=== PATIENT | male | born 1950 | race Two or more races ===

== ENCOUNTER 2023-11-12 14:27 | Emergency (ER) | payer OTHER ==
[~2023-11-12] VITALS: Ht 177.8 cm; Wt 85.3 kg
[2023-11-12] MEDS ORDERED: OXYMETAZOLINE HCL NASAL SPRAY 30 ML BOTTLE NS ONE (15:57)
[2023-11-12] MEDS: OXYMETAZOLINE HCL NASAL SPRAY 30 ML BOTTLE NS ONE (16:03)
[2023-11-12] MEDS ORDERED: SODI88SP18 BNOSTRILS (16:22)
[2023-11-12] MEDS ORDERED: OXYM30SP84 NS (16:22)
[2023-11-12 16:29] VITALS: BP 121/69; TEMP 98.4; O2SAT 100
== END 2023-11-12 16:30 | disposition home or self-care (01) ==
LOC: ER 14:38
DX: R04.0 Epistaxis (principal); I10 Essential (primary) hypertension; Z79.891 Long term (current) use of opiate analgesic; Z98.890 Other specified postprocedural states; Z79.899 Other long term (current) drug therapy; Z60.2 Problems related to living alone